=== PATIENT | male | born 1990 | race African-American/Black ===

== ENCOUNTER 2017-07-14 15:30 | Emergency (ER) | payer OTHER ==
[~2017-07-14] VITALS: Ht 170.2 cm; Wt 63.5 kg
[~2017-07-14 15:30] MED LIST: BACTRIM DS TAB1 EACH PO; NOHOMEMEDICATIONS; NORCO 5-325 TA1 EACH PO
[2017-07-14] MEDS ORDERED: MOBIC15 MG PO (16:25)
== END 2017-07-14 16:50 | disposition home or self-care (01) ==
LOC: ER 15:30
DX: S60.416A Abrasion of right little finger, initial encounter (principal); F17.210 Nicotine dependence, cigarettes, uncomplicated; W31.1XXA Contact with metalworking machines, initial encounter; Y93.89 Activity, other specified; Y92.89 Other specified places as the place of occurrence of the external cause; Y99.8 Other external cause status

== ENCOUNTER 2018-03-30 16:38 | Emergency (ER) | payer OTHER ==
[~2018-03-30] VITALS: Ht 170.2 cm; Wt 62.6 kg
[~2018-03-30 16:38] MED LIST changes: +MOBIC15 MG PO
[2018-03-30] MEDS ORDERED: EAR WAX REMOVAL15 ML OTIC (17:09)
[2018-03-30 17:16] VITALS: BP 103/75
== END 2018-03-30 17:17 | disposition home or self-care (01) ==
LOC: ER 16:38
DX: H61.22 Impacted cerumen, left ear (principal); R07.89 Other chest pain; F17.210 Nicotine dependence, cigarettes, uncomplicated

== ENCOUNTER 2018-12-14 07:43 | Emergency (ER) | payer OTHER ==
[~2018-12-14] VITALS: Ht 170.2 cm; Wt 68.0 kg
[~2018-12-14 07:43] MED LIST changes: +EAR WAX REMOVAL15 ML OTIC
[2018-12-14 08:10] LABS: URINE BILIRUBIN NEGATIVE (Negative); URINE BLOOD NEGATIVE (Negative); URINE CLARITY CLEAR; URINE COLOR YELLOW; URINE GLUCOSE-RANDOM* NEGATIVE (Negative); URINE KETONES NEGATIVE (Negative); URINE LEUKOCYTES-REFLEX NEGATIVE (Negative); URINE NITRITE-REFLEX NEGATIVE (Negative); URINE PROTEIN (DIPSTICK) TRACE (Negative); URINE UROBILINOGEN 0.2 E.U./dl (0.2-1.0)
[2018-12-14 08:12] LABS: HEMATOCRIT 42.1 % (42.0-52.0); HEMOGLOBIN 13.4 gm/dL (14.0-18.0); MCH 23.3 pg (26.0-34.0); MCHC 31.9 g/dL (28.0-37.0); MCV 73.1 fL (80.0-100.0); RBC 5.76 mil/uL (4.50-6.00); RDW 15.8 % (10.5-14.5); WBC 3.7 thou/uL (4.0-11.0)
[2018-12-14 08:46] LABS: CREATININE 0.9 mg/dL (0.7-1.3)
[2018-12-14 08:47] LABS: POTASSIUM 4.8 mmol/L (3.5-5.1)
[2018-12-14 08:52] LABS: ALBUMIN 3.7 g/dL (3.4-5.0); TOTAL BILIRUBIN 0.9 mg/dL (<0.1-1.0); TOTAL PROTEIN 7.6 g/dL (6.4-8.2)
[2018-12-14] MEDS ORDERED: ZOFRAN4 MG PO (09:00)
[2018-12-14 09:25] VITALS: BP 109/65
== END 2018-12-14 09:25 | disposition home or self-care (01) ==
LOC: ER 07:43
PROVIDERS: Student in an Organized Health Care Education/Training Program
DX: R11.2 Nausea with vomiting, unspecified (principal); R19.7 Diarrhea, unspecified; F17.210 Nicotine dependence, cigarettes, uncomplicated

== ENCOUNTER 2019-01-13 07:41 | Emergency (ER) | payer OTHER ==
[~2019-01-13] VITALS: Ht 170.2 cm; Wt 71.7 kg
[2019-01-13 07:41] VITALS: BP 115/67
[~2019-01-13 07:41] MED LIST changes: +ZOFRAN4 MG PO
[2019-01-13] MEDS ORDERED: CLEOCIN HCL150 MG PO (08:15)
[2019-01-13] MEDS ORDERED: NAPROSYN500 MG PO (08:15)
[2019-01-13 08:23] LABS: URINE BILIRUBIN NEGATIVE (Negative); URINE BLOOD NEGATIVE (Negative); URINE CLARITY CLEAR; URINE COLOR YELLOW; URINE GLUCOSE-RANDOM* NEGATIVE (Negative); URINE KETONES NEGATIVE (Negative); URINE LEUKOCYTES-REFLEX NEGATIVE (Negative); URINE NITRITE-REFLEX NEGATIVE (Negative); URINE PROTEIN (DIPSTICK) NEGATIVE (Negative); URINE SPECIFIC GRAVITY >= 1.030 (1.005-1.035)
== END 2019-01-13 08:20 | disposition home or self-care (01) ==
LOC: ER 07:41
PROVIDERS: Emergency Medicine
DX: K02.9 Dental caries, unspecified (principal); N34.2 Other urethritis; F17.210 Nicotine dependence, cigarettes, uncomplicated